=== PATIENT | female | born 1985 | race American Indian/Alaskan Native ===

== ENCOUNTER 2017-09-20 05:17 | Emergency (ER) | payer MEDICAID ==
[2017-09-20 06:53] LABS: Basophils # (Auto) 0.1 K/mm3 (0.0-0.1); Eosinophils % (Auto) 0.3 % (0.0-4.3); Hematocrit 40.7 % (30.3-42.9); Hemoglobin 13.5 gm/dl (10.1-14.3); Lymphocytes # (Auto) 2.5 K/mm3 (1.2-5.4); Mean Corpuscular HGB Conc 33 % (30-34); Mean Corpuscular Hemoglobin 28 pg (28-32); Mean Corpuscular Volume 84 fl (79-97); Monocytes # (Auto) 0.9 K/mm3 (0.0-0.8); Monocytes % (Auto) 9.6 % (0.0-7.3); Platelet Count 183 K/mm3 (140-440); Red Blood Count 4.83 M/mm3 (3.65-5.03); Red Cell Distribution Width 17.1 % (13.2-15.2)
[2017-09-20 07:38] LABS: Bacteria,Urine 1+ /HPF (Negative); Bilirubin,Urine NEG (Negative); Blood,Urine NEG (Negative); Color,Urine Yellow (Yellow); Mucus,Urine FEW /HPF; Protein,Urine <15 mg/dL mg/dL (Negative); Urobilinogen,Urine < 2.0 mg/dL (<2.0)
--- NOTE | 2017-09-20 08:31 | Ultrasound Report ---
ULTRASOUND OB LESS THAN 14 WEEKS FETUS ULTRASOUND OB TRANSVAGINAL HISTORY: Vaginal bleeding and cramping. COMPARISON: None at this facility. TECHNIQUE: Transabdominal and transvaginal ultrasound with color doppler interrogation. FINDINGS: Uterus: 9.8 x 6.1 x 7.3 cm. A hypoechoic intramural fibroid is identified near the uterine fundus measuring up to 2.1 cm in diameter. The cervix is unremarkable measuring 3 cm. Endometrium: An intrauterine gestational sac containing a small pole and yolk sac is identified. Heart rate measures 160 beats per minute. A small subchorionic hemorrhage is identified along the anterior, right lateral gestational sac measuring approximately 1.4 x 0.5 cm. [place]-rump length measures 5.1 mm which correlates with a 6 weeks 2 day . Estimated due date is 05/14/18. Right ovary: 3.0 x 2.3 x 2.3 cm. No focal abnormality. Left ovary: 3.4 x 1.9 x 2.0 cm. No focal abnormality. No pelvic fluid or mass is identified. Normal color doppler interrogation. IMPRESSION: Viable, single intrauterine as described. Small subchorionic hemorrhage. Uterine fibroid.
[2017-09-20] MEDS ORDERED: KEFLEX PO ONE ×2 (12:09→13:00)
[2017-09-20] MEDS ORDERED: FLAGYL PO ONE (12:09)
--- NOTE | 2017-09-20 12:17 | Emergency Department Report ---
ED Female HPI - General Chief complaint: Vaginal Bleeding Stated complaint: ,N&V,ABDOMINAL PAIN,BLEEDING Time Seen by Provider: 09/20/17 11:25 Source: patient Mode of arrival: Ambulatory Limitations: No Limitations - History of Present Illness Initial comments: 3 days of bilateral lower abdominal pain and vaginal bleeding. . Approx 1 month by LMP. No urinary symptoms. H/o 3 abortions, 2 spontaneous. - Related Data Previous Rx's Medication Instructions Recorded Last Taken Type Cephalexin [Keflex] 500 mg PO ONCE #15 capsule 09/20/17 Unknown Rx metroNIDAZOLE [Flagyl TAB] 500 mg PO ONCE #10 tablet 09/20/17 Unknown Rx Allergies Allergy/AdvReac Type Severity Reaction Status Date / Time No Known Allergies Allergy Unverified 09/20/17 05:51 ED Review of Systems ROS: Stated complaint: ,N&V,ABDOMINAL PAIN,BLEEDING Other details as noted in HPI Constitutional: denies: chills, fever Eyes: denies: eye pain, eye discharge, vision change ENT: denies: ear pain, throat pain Respiratory: denies: cough, shortness of breath, wheezing Cardiovascular: denies: chest pain, palpitations Endocrine: no symptoms reported Gastrointestinal: abdominal pain. denies: nausea, diarrhea Genitourinary: other (vaginal bleeding). denies: urgency, dysuria, discharge Musculoskeletal: denies: back pain, joint swelling, arthralgia Skin: denies: rash, lesions Neurological: denies: headache, weakness, paresthesias Psychiatric: denies: anxiety, depression Hematological/Lymphatic: denies: easy bleeding, easy bruising ED Past Medical Hx - Past Medical History Previous Medical History?: No Additional medical history: Fibroids, Multiple losses, 1 @ 16 weeks, Twins in 2nd Trimester - Surgical History Past Surgical History?: Yes Additional Surgical History: Ankle surgery with pins and plates - Social History Smoking Status: Former Smoker - Medications Home Medications: Home Medications Medication Instructions Recorded Confirmed Last Taken Type Cephalexin [Keflex] 500 mg PO ONCE #15 capsule 09/20/17 Unknown Rx metroNIDAZOLE [Flagyl TAB] 500 mg PO ONCE #10 tablet 09/20/17 Unknown Rx ED Physical Exam - General Limitations: No Limitations General appearance: alert, in no apparent distress - Head Head exam: Present: atraumatic, normocephalic - Eye Eye exam: Present: normal appearance - ENT ENT exam: Present: mucous membranes moist - Neck Neck exam: Present: normal inspection - Respiratory Respiratory exam: Present: normal lung sounds bilaterally. Absent: respiratory distress - Cardiovascular Cardiovascular Exam: Present: regular rate, normal rhythm. Absent: systolic murmur, diastolic murmur, rubs, gallop - GI/Abdominal GI/Abdominal exam: Present: soft, tenderness (mild LLQ/RLQ abd tenderness), normal bowel sounds - Speculum exam: Present: vaginal discharge (white) Bi-manual exam: Present: normal bi-manual exam (normal bimanual exam). Absent: uterine enlargement, uterine tenderness - Extremities Exam Extremities exam: Present: normal inspection - Back Exam Back exam: Present: normal inspection - Neurological Exam Neurological exam: Present: alert, oriented X3 - Psychiatric Psychiatric exam: Present: normal affect, normal mood - Skin Skin exam: Present: warm, dry, intact, normal color. Absent: rash ED Course Vital Signs 09/20/17 09/20/17 09/20/17 05:35 05:56 10:03 Temperature 99.0 F 99.0 F 98.8 F Pulse Rate 92 H 78 90 Respiratory 18 18 20 Rate Blood Pressure 114/70 114/70 Blood Pressure 112/65 [Left] O2 Sat by Pulse 98 100 99 Oximetry ED Medical Decision Making - Lab Data Result diagrams: 09/20/17 06:10 - Medical Decision Making Pt has no bleeding on physical exam. She has white vaginal discharge with fishy ordered. Concern for bacterial vaginosis. Patient will be treated with Flagyl for 5 days. Ultrasound shows IUP with evidence of subchorionic hemorrhage. I informed the patient that this is a increased risk for , but he can go to term without complication. She said that she'll follow-up with her OB back in [place] for further management. She is taking her vitamins. Patient does have evidence of a symptomatically. She'll be started on Keflex for this. No indication for RhoGAM at this time. Clear for discharge. - Differential Diagnosis IUP, ectopic , spontaneous , coagulopathy Critical care attestation.: If time is entered above; I have spent that time in minutes in the direct care of this critically ill patient, excluding procedure time. ED Disposition Clinical Impression: Threatened miscarriage in early Disposition: DC-01 TO HOME OR SELFCARE Is pt being admited?: No Does the pt Need Aspirin: No Condition: Stable Instructions: Threatened Miscarriage (ED) Additional Instructions: Please continue taking her vitamins. Picture that he follow up with your OB for reevaluation. Your fetus has evidence of a subchorionic hemorrhage at this time. Prescriptions: Cephalexin [Keflex] 500 mg PO ONCE #15 capsule metroNIDAZOLE [Flagyl TAB] 500 mg PO ONCE #10 tablet Referrals: PRIMARY CARE, [Primary Care Provider] - 3-5 Days
[2017-09-20 12:36] VITALS: BP 118/76
== END 2017-09-20 12:30 | disposition home or self-care (01) ==
LOC: ED 05:17
DX: O20.0 Threatened abortion (principal); Z87.891 Personal history of nicotine dependence; Z3A.16 16 weeks gestation of pregnancy
CPT/HCPCS: 36415; 76801; 76817; 81001; 84702; 85025; 86850; 86900; 86901